=== PATIENT | female | born 1985 | race Asian ===

== ENCOUNTER 2021-11-26 20:51 | Emergency (ER) | payer BC, SELFPAY ==
[2021-11-26 21:17] VITALS: BP 118/69; PULSE 84; RESP 21; TEMP 36.2; O2SAT 96
--- NOTE | 2021-11-26 23:27 | ED.NAVMDI ---
HPI - Nausea/Vomiting/Diarrhea General Chief complaint: Nausea/Vomiting/Diarrhea Stated complaint: diarrhea and vomiting blood Time Seen by Provider: 11/26/21 23:07 Source: patient and RN notes reviewed Mode of arrival: ambulatory Limitations: no limitations History of Present Illness HPI Narrative: This is a 36 year old female who presents for evaluation of nausea, vomiting and diarrhea. Patient developed nausea, vomiting and diarrhea tonight. She reports multiple episodes of nonbilious emesis and diarrhea that started around 4-5 hours ago. She states she had these symptoms constantly for 2 hours. She also reports her last episodes of emesis had some specks of blood in it. She reports she feels better now. She also reports dull lower abdominal ache that started after her vomiting and diarrhea. She describes diarrhea has watery. She denies fever, chills, cough, sore throat. She reports having runny nose only when she is outside in the cold and that started 4 days ago. She denies any other symptoms. She denies sick contacts. She returned from [place] 2 weeks ago. Related Data Allergies Allergy/AdvReac Type Severity Reaction Status Date / Time NSAIDS (Non-Steroidal Allergy Hives Verified 11/26/21 21:20 Anti-Inflamma Review of Systems Review of Systems: All systems reviewed & are unremarkable except as noted in HPI and below PMFSH Past Medical History Medical History (Updated 11/27/21 @ 02:05 by Tammy Anderson MD) Patient denies medical problems Surgical History Surgical History (Updated 11/26/21 @ 23:33 by Tammy Anderson MD) H/O nasal septoplasty Social History Social History (Updated 11/26/21 @ 23:33 by Tammy Anderson MD) Smoking status: Never smoker Exam Const: General: no acute distress and alert Orientation/consciousness: patient oriented x3 Eyes: EOM: EOMs intact bilaterally Chest: Chest palpation & inspection: normal inspection of the chest Resp: Effort & Inspection: normal respiratory effort and no retractions Auscultation: clear to auscultation bilaterally Cardio: Rate: regular rate Rhythm: regular rhythm Heart sounds: no murmurs GI: GI Palp: Yes Soft to palpation, No Tenderness to palpation present (GI) and No Guarding due to palpation present (GI) Auscultation: normal bowel sounds Skin: General skin exam: normal color Rashes: no rashes Neuro: General: patient oriented x3, moves all extremities and CN's II-XI intact bilaterally Extrem: General: normal to inspection Psych: Mental Status: mental status grossly normal Affect: normal affect Course Reevaluation(s) Reevaluation #1: Patient states she feels much better. She denies nausea, vomiting, dizziness or abdominal pain. Her abdominal exam is normal. I Discussed labs with patient. This is unlikely appendicitis. I do not think she needs imaging at this time. I have discussed with patient. Will test for covid prior to discharge. Date: 11/27/21 Time: 02:03 Vital Signs Vital signs: Vital Signs Temperature 97.2 F L 11/26/21 21:17 Pulse Rate 84 11/26/21 21:17 Respiratory Rate 21 H 11/26/21 21:17 Blood Pressure 118/69 11/26/21 21:17 Pulse Oximetry 96 11/26/21 21:17 Temperature 97.2 F L 11/26/21 21:17 Pulse Rate 76 11/27/21 02:25 Respiratory Rate 18 11/27/21 02:25 Blood Pressure 114/67 11/27/21 02:25 Pulse Oximetry 100 11/27/21 02:25 MDM - Nausea/Vomiting/Diarrhea Lab Data Attestation: I reviewed the patient's lab results. Result diagrams: 11/27/21 00:02 11/27/21 00:02 Labs: Lab Results 11/27/21 11/27/21 11/27/21 Range/Units 00:02 00:02 01:26 WBC 11.7 H (4.5-10.0) K/mm3 RBC 4.83 (4.2-5.4) M/mm3 Hgb 14.7 (12.0-15.0) g/dL Hct 45.7 (37.0-47.0) % MCV 94.6 (80-100) fl MCH 30.4 (26-34) pg MCHC 32.2 (32-36) g/dl RDW 12.5 (11.5-14.5) % Plt Count 352 (150-375) k/mm3 MPV 10.8 H (7.4
[2021-11-27] MEDS: LACTATED RINGERS 1,000 ML 999 ML IV CONT (00:06)
[2021-11-27] MEDS: ONDANSETRON INJ 4 MG/2 ML VIAL IV PUSH (00:07)
[2021-11-27] MEDS: PANTOPRAZOLE SODIUM IV 40 MG VIAL IV PUSH (00:07)
[2021-11-27 00:32] LABS: Basophils Absolute Auto 0.1 K/mm3 (0.0-0.1); Basophils Percent Auto 0.4 % (0.2-1.2); Eosinophils Absolute Auto 0.1 K/mm3 (0-0.3); Hematocrit 45.7 % (37.0-47.0); Hemoglobin 14.7 g/dL (12.0-15.0); Immature Granulocyte Absolute 0.03 K/mm3 (0.00-0.031); Immature Granulocyte Percent A 0.3 % (0-0.5); Lymphocytes Absolute Auto 0.51 K/mm3 (0.9-3.2); Lymphocytes Percent Auto 4.4 % (18.3-44.2); Mean Corpuscular HGB Conc 32.2 g/dl (32-36); Mean Corpuscular Hemoglobin 30.4 pg (26-34); Mean Corpuscular Volume 94.6 fl (80-100); Mean Platelet Volume 10.8 fl (7.4-10.4); Monocytes Absolute Auto 0.6 K/mm3 (0.1-0.6); Monocytes Percent Auto 4.8 % (2.6-8.5); Neutrophils Absolute Auto 10.5 K/mm3 (1.3-6.7); Neutrophils Percent Auto 89.1 % (45.5-73.1); Platelet Count Result 352 k/mm3 (150-375); Red Blood Count 4.83 M/mm3 (4.2-5.4); Red Cell Distribution Width 12.5 % (11.5-14.5); White Blood Count 11.7 K/mm3 (4.5-10.0)
[2021-11-27 00:35] LABS: Alanine Aminotransferase 19 U/L (4-35); Albumin Level 4.7 g/dL (3.5-5.1); Alkaline Phosphatase 82 U/L (38-126); Anion Gap 10 mmol/L (8-16); Aspartate Amino Transferase 29 U/L (14-36); Bilirubin,Total 1.2 mg/dL (0.2-1.3); Blood Urea Nitrogen 17 mg/dL (7-17); Calcium 9.3 mg/dL (8.4-10.2); Carbon Dioxide 22 mmol/L (22-30); Chloride 104 mmol/L (98-107); Estimated CRCL calculation 57 ml/min; Estimated Glomerular Filt Rate > 60; Glucose 106 mg/dL (65-110); Lipase 64 U/L (23-300); Potassium 4.8 mmol/L (3.4-5.0); Sodium 136 mmol/L (137-145)
[2021-11-27 02:19] LABS: Add Urine Microscopic? YES; Appearance Urine Clear (Clear); Bilirubin Urine Negative (Negative); Blood Urine 2+ (Negative); Color Urine Amber (Yellow); Glucose Urine UA Negative (Negative); Ketones Urine 1+ mg/dL (Negative); Leukocyte Esterase Ur Negative LEU/UL (Negative); Mucus Urine Heavy /lpf; Nitrate Urine Negative (Negative); Protein Urine 1+ mg/dL (Negative); Specific Grav Ur 1.028 (1.001-1.035); Squamous Epithelial Cell Urine Few /hpf (Few); Urobilinogen Urine Negative mg/dL (<2.0)
[2021-11-27 02:25] VITALS: BP 114/67; PULSE 76; RESP 18; O2SAT 100
[2021-11-27 21:55] LABS: SARS-CoV-2 RNA PCR Negative
== END 2021-11-27 02:28 | disposition home or self-care (01) ==
PROVIDERS: Emergency Provider General Practice
DX: K52.9 Noninfective gastroenteritis and colitis, unspecified (principal); Z20.822 Contact with and (suspected) exposure to COVID-19
CPT/HCPCS: 36415; 80053; 81001; 81025; 83690; 85025; 96361; 96374; 96375; 99284; C9113; C9803; J2405; J7120; U0003; U0005